=== PATIENT | male | born 1960 | race Caucasian/White ===

== ENCOUNTER 2018-01-08 06:20 | Day surgery (SDC) | payer MEDICARE ==
[~2018-01-08] VITALS: Ht 175.3 cm; Wt 87.5 kg
--- NOTE | ~2018-01-08 | OP ---
PATIENT NAME: TWIN MCCARTHY MEDICAL RECORD: [id number] :64 LOCATION:D.OPS ADMISSION DATE: SURGEON: LINDA ARENAS MD DATE OF OPERATION: 01/08/2018 REFERRED BY: Cholo Moreira MD PRIMARY CARE PHYSICIAN: Dr. Terence Daigle of [place] PREOPERATIVE DIAGNOSES: End-stage renal disease and dependence on hemodialysis with additional comorbidities, diabetes and hypertension. SURGEON: Linda Arenas MD ANESTHESIA: General plus regional block per CABIN EQUIPMENT SUPERVISOR. OPERATION PERFORMED: Creation of a left brachiobasilic Calista type AV fistula in preparation for planned return to the operating room in 3-4 weeks for creation of a brachial artery to translocated basilic vein AV fistula. PREOPERATIVE NOTE: Mr. Mccarthy is a 57-year-old white male patient with end-stage renal disease, already on dialysis. He presently has a left-sided internal jugular tunneled dialysis catheter. He is brought to the operating room for creation of an AV fistula in the left arm. He has a very dominant basilic vein circulation and I plan on a brachiobasilic. DESCRIPTION OF PROCEDURE: Under anesthesia including a regional nerve block, the patient is prepped and draped in a sterile manner. I examined him with Duplex ultrasound and confirmed the venous anatomy. Topical nitroglycerin was utilized and a Juan Carlos drain was used as a proximal venous tourniquet for this exam. I then went on to make a transverse antecubital incision and exposed the brachial artery and the basilic vein. The vein was dissected from the surrounding structures, treated with topical papaverine and distally ligated and divided and bevelled. I noted some scarring and thickening of the vein wall and scarring of valves consistent with prior phlebitis, but there was an adequate lumen. The vein was flushed with heparinized saline and clamped. The brachial artery was exposed and controlled proximally and distally with Silastic loops. It was noted to have yellow atherosclerotic plaque, but no significant calcifications. The artery was opened and flushed proximally and distally with heparinized saline. The vein was then anastomosed to the side of the artery with running 7-0 Prolene and when completed and the vessel loops released and the clamp on the vein taken off, excellent flow was immediately established within the fistula and there was no bleeding from the suture line. The wound was irrigated with saline and then closed with interrupted inverted 3-0 Vicryl and running intracuticular 4-0 Monocryl. The skin was closed with glue and the wound dressed with Maxorb Ag, Tegaderm, and Cavilon skin prep. The patient was awakened and taken to the recovery room. There was no blood loss during the procedure. All sponges, instruments, and needles were accounted for. No drain was used and no surgical specimen was submitted for histopathology. PLAN: The patient will be discharged to home and an appointment made for him to return to see me in my office in about 2 weeks. He will continue his usual home renal ADA diet and dialysis schedule and resume his home medications. Tomorrow, OPERATIVE REPORT [id number] TWIN MCCARTHY he can resume his usual daily dose of Coumadin. His regular home medications include tramadol, hydrocodone, and oxycodone, and so I have not given any new prescriptions for narcotic pain medications. TRANSINT:[id number] Voice Confirmation ID: [id number] DOCUMENT ID: [id number] LINDA ARENAS MD at 0847 CC: CHOLO MOREIRA MD [id number] DICTATION DATE: 01/08/18 1233 AGRICULTURAL SERVICE TECHNICIAN: 01/08/18 1402 [facility] 01/08/18 [facility] [address] [place] [address]
[2018-01-08 07:01] LABS: BASOPHILS 1.2 % (0-2); EOSINOPHILS 7.8 % (0-7); HEMATOCRIT 37.5 % (42.0-54.0); HEMOGLOBIN 12.6 g/dL (13.5-17.5); LYMPHOCYTES 29.8 % (15-50); MCHC 33.6 g/dL (31.0-37.0); MCV 86.4 fL (80.0-100.0); MEAN PLATELET VOLUME 10.6 fL (7.4-10.4); MONOCYTES 18.9 % (2-11); NEUTROPHILS 41.3 % (40-80); PLATELET COUNT 155 10x3/uL (130-400); RBC 4.34 10x6/uL (4.20-6.10); RDW 15.5 % (11.5-14.5); WBC 5.8 10x3/uL (4.8-10.8)
[2018-01-08 07:13] LABS: ANION GAP 15.3 mmol/L (8-16); CALCIUM 8.8 mg/dL (8.5-10.1); CARBON DIOXIDE 23.9 mmol/L (21.0-32.0); POTASSIUM - SERUM 4.2 mmol/L (3.5-5.1)
[2018-01-08 07:17] LABS: APTT 24.4 SECONDS (22.8-39.4); INR 1.57 (0.85-1.17); PROTIME 18.2 SECONDS (11.6-15.0)
[2018-01-08] MEDS ORDERED: CYCLOBENZAPRINE5 MG PO (08:04)
[2018-01-08] MEDS ORDERED: ZOFRAN4 MG PO (08:04)
[2018-01-08] MEDS ORDERED: VISTARIL25 MG (08:05)
[2018-01-08] MEDS ORDERED: COREG 3.1253.125 MG PO (08:05)
[2018-01-08] MEDS ORDERED: ENTRESTO 24 MG1 EACH PO (08:05)
[2018-01-08] MEDS ORDERED: RENVELA800 MG PO (08:06)
[2018-01-08] MEDS ORDERED: BUMEX2 MG PO (08:06)
[2018-01-08] MEDS ORDERED: SYNTHROID125 MCG PO (08:06)
[2018-01-08] MEDS ORDERED: COUMADIN3 MG PO (08:06)
[2018-01-08] MEDS ORDERED: OXYCONTIN10 MG PO (08:07)
[2018-01-08] MEDS ORDERED: NORCO 7.5/325 T1 TA1 PO (08:07)
[2018-01-08 08:16] VITALS: Ht 175.3 cm; Wt 87.5 kg
== END 2018-01-08 14:35 | disposition home or self-care (01) ==
LOC: D.OPS 06:20
PROVIDERS: Surgery
DX: E11.22 Type 2 diabetes mellitus with diabetic chronic kidney disease (principal); I12.0 Hypertensive chronic kidney disease with stage 5 chronic kidney disease or end stage renal disease; N18.6 End stage renal disease; Z99.2 Dependence on renal dialysis; Z01.812 Encounter for preprocedural laboratory examination

== ENCOUNTER 2018-01-10 15:21 | Emergency (ER) | payer MEDICARE ==
[~2018-01-10] VITALS: Ht 175.3 cm; Wt 86.4 kg
[~2018-01-10 15:21] MED LIST: BUMEX2 MG PO; COREG 3.1253.125 MG PO; COUMADIN3 MG PO; CYCLOBENZAPRINE5 MG PO; ENTRESTO 24 MG1 EACH PO; NORCO 7.5/325 T1 TA1 PO; OXYCONTIN10 MG PO; RENVELA800 MG PO; SYNTHROID125 MCG PO; VISTARIL25 MG; ZOFRAN4 MG PO
[2018-01-10 15:24] VITALS: Ht 175.3 cm; Wt 86.4 kg
[2018-01-10 16:57] LABS: BASOPHILS 0.7 % (0-2); EOSINOPHILS 9.5 % (0-7); HEMATOCRIT 39.6 % (42.0-54.0); HEMOGLOBIN 13.3 g/dL (13.5-17.5); IMMATURE GRANULOCYTES 0.2 % (0-5); LYMPHOCYTES 26.5 % (15-50); MCH 30.2 pg (26.0-34.0); MCHC 33.6 g/dL (31.0-37.0); MCV 89.8 fL (80.0-100.0); MEAN PLATELET VOLUME 10.6 fL (7.4-10.4); MONOCYTES 15.6 % (2-11); NEUTROPHILS 47.5 % (40-80); PLATELET COUNT 148 10x3/uL (130-400); RBC 4.41 10x6/uL (4.20-6.10); RDW 15.8 % (11.5-14.5); WBC 5.8 10x3/uL (4.8-10.8)
[2018-01-10 17:15] LABS: ALBUMIN 3.4 g/dL (3.4-5.0); ANION GAP 12.6 mmol/L (8-16); BILIRUBIN - TOTAL 0.91 mg/dL (0.2-1.3); CALCIUM 9.3 mg/dL (8.5-10.1); CARBON DIOXIDE 28.6 mmol/L (21.0-32.0); CREATININE - SERUM 4.2 mg/dL (0.6-1.3); POTASSIUM - SERUM 4.2 mmol/L (3.5-5.1); PROTEIN - SERUM 9.4 g/dL (6.4-8.2)
[2018-01-10] MEDS ORDERED: KEFLEX500 MG PO (17:56)
[2018-01-10 19:00] VITALS: BP 122/64
== END 2018-01-10 19:02 ==
LOC: D.ER 15:21
PROVIDERS: Family Medicine
DX: G89.18 Other acute postprocedural pain (principal); I10 Essential (primary) hypertension; I50.9 Heart failure, unspecified

== ENCOUNTER 2018-01-17 03:46 | Emergency (ER) | payer MEDICARE ==
[~2018-01-17] VITALS: Ht 175.3 cm; Wt 77.7 kg
[~2018-01-17 03:46] MED LIST changes: +KEFLEX500 MG PO
[2018-01-17 03:49] VITALS: Ht 175.3 cm; Wt 77.7 kg
[2018-01-17 05:58] VITALS: BP 98/55
== END 2018-01-17 05:59 ==
LOC: D.ER 03:46
DX: T82.898A Other specified complication of vascular prosthetic devices, implants and grafts, initial encounter (principal); I73.9 Peripheral vascular disease, unspecified; I10 Essential (primary) hypertension; I50.9 Heart failure, unspecified

== ENCOUNTER 2018-03-12 08:11 | Day surgery (SDC) | payer MEDICARE ==
[~2018-03-12] VITALS: Ht 175.3 cm; Wt 77.1 kg
[2018-03-12 08:40] LABS: HEMATOCRIT 34.6 % (42.0-54.0); HEMOGLOBIN 11.5 g/dL (13.5-17.5); MCH 29.7 pg (26.0-34.0); MCHC 33.2 g/dL (31.0-37.0); MCV 89.4 fL (80.0-100.0); MEAN PLATELET VOLUME 9.1 fL (7.4-10.4); RBC 3.87 10x6/uL (4.20-6.10); RDW 15.2 % (11.5-14.5); WBC 5.7 10x3/uL (4.8-10.8)
[2018-03-12 08:42] LABS: PLATELET COUNT 220 10x3/uL (130-400)
[2018-03-12 08:54] LABS: APTT 30.6 SECONDS (22.8-39.4); INR 1.53 (0.85-1.17); PROTIME 17.9 SECONDS (11.6-15.0)
[2018-03-12 09:18] LABS: CALCIUM 8.5 mg/dL (8.5-10.1); CARBON DIOXIDE 28.3 mmol/L (21.0-32.0); CREATININE - SERUM 4.3 mg/dL (0.6-1.3); POTASSIUM - SERUM 4.3 mmol/L (3.5-5.1)
[2018-03-12 09:40] LABS: BASOPHILS 2 % (0-2); EOSINOPHILS 11 % (0-7); LYMPHOCYTES 34 % (15-50); MONOCYTES 16 % (2-11); NEUTROPHILS 37 % (40-80); PLATELET ESTIMATE NORMAL; ROULEAUX OCC
[2018-03-12] MEDS ORDERED: REGLAN5 MG PO (10:41)
[2018-03-12] MEDS ORDERED: FAMOTIDINE10 MG PO (10:45)
[2018-03-12 11:04] VITALS: Ht 175.3 cm; Wt 77.1 kg
== END 2018-03-12 16:35 | disposition home or self-care (01) ==
LOC: D.OPS 08:11
PROVIDERS: Surgery
DX: N18.6 End stage renal disease (principal); Z01.812 Encounter for preprocedural laboratory examination; Z53.8 Procedure and treatment not carried out for other reasons

== ENCOUNTER 2018-05-07 06:28 | Day surgery (SDC) | payer MEDICARE ==
[~2018-05-07] VITALS: Ht 175.3 cm; Wt 79.4 kg
--- NOTE | ~2018-05-07 | OP ---
PATIENT NAME: Malgorzata MCCARTHY MEDICAL RECORD: [id number] :64 [facility] [place] AD[facility] DATE: SURGEON: LINDA ARENAS MD DATE OF OPERATION: 05/07/2018 REFERRING PHYSICIAN: Cholo Moreira MD PREOPERATIVE DIAGNOSIS: End-stage renal disease. OPERATION PERFORMED: Second stage creation of brachial artery to translocated basilic vein AV fistula. PREOPERATIVE NOTE: Mr. Mccarthy is a very nice 58-year-old gentleman with end-stage renal disease, who has had a Calista type brachial artery to basilic vein AV fistula created and now after several weeks he has returned to the operating room to create a translocated basilic vein fistula. DESCRIPTION OF PROCEDURE: Under general anesthesia with an LMA per LADLE REPAIRMAN, the patient was prepped and draped in a sterile manner. A long incision was made from axilla to antecubital space. This was done with ultrasound guidance directly over the dilated basilic vein. The vein was mobilized dividing up tributaries between Vicryl ties and clips and it was treated with topical papaverine. It was mobilized all the way to the axilla to very close to its junction with the deep brachial veins. The vein was ligated and divided immediately proximal to the arterial anastomosis and the vein was flushed with heparinized saline and treated again with topical papaverine. The vein was placed in an anterior superficial tunnel, brought back to the primary incision. The brachial artery was exposed at a higher level and controlled with loops. The artery was opened and flushed proximally and distally with heparinized saline. The vein was bevelled and anastomosed end-to-side to the artery with running 7-0 Prolene, and when completed and the occluding loops and clamps were released, excellent flow developed immediately within the fistula and the suture line was hemostatic. The wound was irrigated thoroughly with saline and infiltrated with 0.25% Marcaine without epinephrine. The wound was closed with interrupted inverted 3-0 Vicryl and running intracuticular Monocryl and Dermabond glue and dressed with Maxorb Ag, Tegaderm, and Cavilon skin prep. The patient awakened and taken to the recovery room. Blood loss during the operation estimated at 10 cc, of course unreplaced. All sponges, instruments and needles were accounted for. No drain was used and no surgical specimen was submitted for histopathology. PLAN: The patient's fistula will likely be ready for use in about 4 weeks. He will be scheduled to return to see me in my office in the next week and is given a prescription for Opheim 5/325, #20, to take 1 or 2 p.o. every 4 to 6 hours p.r.n. for pain. TRANSINT:[id number] Voice Confirmation ID: [id number] DOCUMENT ID: [id number] OPERATIVE REPORT [id number] Malgorzata MCCARTHY JAMES MD CC: CHOLO MOREIRA MD [id number] DICTATION DATE: 05/23/18 1018 TEMPLATE CUTTER: 05/23/18 1057 [facility] 05/07/[address] [facility] [address] [place] [address]
[~2018-05-07 06:28] MED LIST changes: +FAMOTIDINE10 MG PO; +REGLAN5 MG PO
[2018-05-07 06:59] LABS: BASOPHILS 0.1 % (0-2); EOSINOPHILS 3.6 % (0-7); HEMATOCRIT 35.1 % (42.0-54.0); HEMOGLOBIN 11.6 g/dL (13.5-17.5); IMMATURE GRANULOCYTES 0.1 % (0-5); MCH 29.5 pg (26.0-34.0); MCV 89.3 fL (80.0-100.0); MEAN PLATELET VOLUME 9.2 fL (7.4-10.4); MONOCYTES 13.8 % (2-11); NEUTROPHILS 57.4 % (40-80); PLATELET COUNT 251 10x3/uL (130-400); RBC 3.93 10x6/uL (4.20-6.10); RDW 13.1 % (11.5-14.5); WBC 6.7 10x3/uL (4.8-10.8)
[2018-05-07 07:16] LABS: ANION GAP 16.8 mmol/L (8-16); CALCIUM 8.8 mg/dL (8.5-10.1); CARBON DIOXIDE 25.4 mmol/L (21.0-32.0); CREATININE - SERUM 4.5 mg/dL (0.6-1.3); POTASSIUM - SERUM 3.2 mmol/L (3.5-5.1)
[2018-05-07 07:29] LABS: INR 1.57 (0.85-1.17); PROTIME 18.2 SECONDS (11.6-15.0)
[2018-05-07 09:43] VITALS: Ht 175.3 cm; Wt 79.4 kg
== END 2018-05-07 19:55 | disposition home or self-care (01) ==
LOC: D.OPS 06:28
PROVIDERS: Internal Medicine Nephrology
DX: E11.22 Type 2 diabetes mellitus with diabetic chronic kidney disease (principal); I12.0 Hypertensive chronic kidney disease with stage 5 chronic kidney disease or end stage renal disease; N18.6 End stage renal disease; Z99.2 Dependence on renal dialysis; Z01.812 Encounter for preprocedural laboratory examination

== ENCOUNTER 2018-06-04 09:18 | Day surgery (SDC) | payer MEDICARE ==
[~2018-06-04] VITALS: Ht 175.3 cm; Wt 77.1 kg
[2018-06-04 09:57] LABS: ANION GAP 14.2 mmol/L (8-16); CALCIUM 8.9 mg/dL (8.5-10.1); CARBON DIOXIDE 26.5 mmol/L (21.0-32.0); CREATININE - SERUM 4.2 mg/dL (0.6-1.3); POTASSIUM - SERUM 3.7 mmol/L (3.5-5.1)
[2018-06-04 09:58] LABS: EOSINOPHILS 4.3 % (0-7); HEMATOCRIT 38.1 % (42.0-54.0); HEMOGLOBIN 12.3 g/dL (13.5-17.5); IMMATURE GRANULOCYTES 0.2 % (0-5); LYMPHOCYTES 29.4 % (15-50); MCH 29.6 pg (26.0-34.0); MCHC 32.3 g/dL (31.0-37.0); MCV 91.8 fL (80.0-100.0); MEAN PLATELET VOLUME 9.7 fL (7.4-10.4); MONOCYTES 13.3 % (2-11); NEUTROPHILS 51.8 % (40-80); PLATELET COUNT 263 10x3/uL (130-400); RBC 4.15 10x6/uL (4.20-6.10); RDW 14.4 % (11.5-14.5); WBC 6.1 10x3/uL (4.8-10.8)
[2018-06-04 09:59] LABS: APTT 29.1 SECONDS (22.8-39.4); INR 1.38 (0.85-1.17); PROTIME 16.5 SECONDS (11.6-15.0)
[2018-06-04 11:11] VITALS: Ht 175.3 cm; Wt 77.1 kg
== END 2018-06-04 17:10 | disposition home or self-care (01) ==
LOC: D.OPS 09:18
PROVIDERS: Surgery
DX: T82.898A Other specified complication of vascular prosthetic devices, implants and grafts, initial encounter (principal); I73.9 Peripheral vascular disease, unspecified; E11.22 Type 2 diabetes mellitus with diabetic chronic kidney disease; I12.0 Hypertensive chronic kidney disease with stage 5 chronic kidney disease or end stage renal disease; N18.6 End stage renal disease; Z99.2 Dependence on renal dialysis; Z01.812 Encounter for preprocedural laboratory examination

== ENCOUNTER 2018-07-09 08:56 | Day surgery (SDC) | payer MEDICARE ==
[~2018-07-09] VITALS: Ht 175.3 cm; Wt 68.4 kg
--- NOTE | ~2018-07-09 | OP ---
PATIENT NAME: Malgorzata MCCARTHY MEDICAL RECORD: [id number] :64 LOCATION:[facility] ADMISSION DATE: SURGEON: LINDA ARENAS MD DATE OF OPERATION: 07/09/2018 REFERRED BY: Cholo Eagle MD PREOPERATIVE DIAGNOSES: End-stage renal disease with dependence on hemodialysis and persistent steal syndrome in the left arm despite recent MEJIA banding procedure of left brachial to translocated basilic vein arteriovenous fistula. POSTOPERATIVE DIAGNOSES: End-stage renal disease with dependence on hemodialysis and persistent steal syndrome in the left arm despite recent MEJIA banding procedure of left brachial to translocated basilic vein arteriovenous fistula. SURGEON: Linda Arenas MD ANESTHESIA: Regional nerve block plus general endotracheal anesthesia all per APPAREL RENTAL CLERK. PREOPERATIVE NOTE: Mr. Mccarthy is a 58-year-old white male with end-stage renal disease who had a translocated left basilic vein, brachial artery AV fistula created and promptly developed steal syndrome. I did a MEJIA banding procedure, which did not relieve his symptoms. That MEJIA banding procedure really consisted only of with a single Prolene tie and I was generally not happy with that procedure at that time. He is still symptomatic and so is returned to the operating room for proximalization of arterial inflow. I planned to run an Artegraft from his axillary artery distally and anastomose it to the basilic vein fistula just above the arterial anastomosis to the brachial artery and I will plan to ligate and divide the fistula just above the brachial artery anastomosis. Under regional block plus general anesthesia, first with an LMA and then general endotracheal anesthesia, the patient was prepped and draped in sterile manner and I exposed the basilic vein fistula just above the brachial artery anastomosis. The vein in this region, which has been operated on now several times, was rather friable and hard to dissect from the surrounding tissues. I made a transverse axillary incision and exposed the axillary artery and controlled it with doubly looped Silastic tapes. The artery was occluded. It was opened, flushed proximally and distally with heparinized saline and a 6 mm Artegraft taken to the package and thoroughly rinsed as per directions, was beveled and anastomosed end-to-side to the artery with running 6-0 Prolene. There was calcific atherosclerotic plaque present in the axillary artery at the upper end of that anastomosis. There was adequate inflow. However, this was not significantly diameter reducing. The Artegraft anastomosis was treated with BioGlue. It was then brought through a subcutaneous tunnel down the inside of the arm to the initial incision just above the elbow. The existing fistula there was ligated doubly with 2-0 Vicryl and then transected, flushed with heparinized saline and then an end-to-end anastomosis was done to the Artegraft with running 6-0 Prolene. When completed, excellent flow was present in the fistula and there was good augmentation as well as collapse of the fistula. Hemostasis was obtained with electrocautery. No drains were used. The wounds were irrigated with saline and closed with interrupted inverted 3-0 Vicryl and running intracuticular 4-0 Monocryl. Dermabond glue completed the skin closure. OPERATIVE REPORT [id number] Malgorzata MCCARTHY The wounds were dressed with Maxorb Ag, Tegaderm, and Cavilon skin prep. The patient was awakened and extubated and taken to the recovery room in stable condition. Blood loss was only about 50 cc. None was replaced intraoperatively. All sponges, instruments and needles were accounted for. No drain was used and no surgical specimen submitted for histopathology. I plan to see the patient back in my office next week. He is given a prescription for tramadol 50 mg, 20 of them, 1-2 p.o. q.4 hours p.r.n. pain. TRANSINT:[id number] Voice Confirmation ID: [id number] DOCUMENT ID: [id number] LINDA ARENAS MD at 1150 CC: CHOLO EAGLE MD [id number] DICTATION DATE: 07/09/181838 METAL TECHNICIAN: 07/09/182005 [facility] 07/10/18 [facility] [address] [place] [address]
[2018-07-09 10:08] LABS: BASOPHILS 0.6 % (0-2); EOSINOPHILS 3.8 % (0-7); HEMATOCRIT 39.2 % (42.0-54.0); HEMOGLOBIN 12.7 g/dL (13.5-17.5); LYMPHOCYTES 26.2 % (15-50); MCH 29.2 pg (26.0-34.0); MCHC 32.4 g/dL (31.0-37.0); MCV 90.1 fL (80.0-100.0); MONOCYTES 11.9 % (2-11); NEUTROPHILS 57.5 % (40-80); RBC 4.35 10x6/uL (4.20-6.10); RDW 13.9 % (11.5-14.5); WBC 5.3 10x3/uL (4.8-10.8)
[2018-07-09 10:15] LABS: PLATELET COUNT 200 10x3/uL (130-400)
[2018-07-09 10:30] LABS: APTT 30.5 SECONDS (22.8-39.4); CALCIUM 8.4 mg/dL (8.5-10.1); CARBON DIOXIDE 24.6 mmol/L (21.0-32.0); CREATININE - SERUM 7.4 mg/dL (0.6-1.3); INR 1.4 (0.85-1.17); POTASSIUM - SERUM 4.6 mmol/L (3.5-5.1); PROTIME 16.6 SECONDS (11.6-15.0)
[2018-07-09 11:19] VITALS: BP 146/90; BMI 21.9
[2018-07-09 19:37] VITALS: BP 149/84
[2018-07-09 20:00] VITALS: BP 149/84
[2018-07-09 22:28] VITALS: BP 149/84; Ht 175.3 cm; Wt 68.4 kg
== END 2018-07-10 03:34 ==
LOC: D.OPS 08:56 → D.M2 18:54 → D.OPS 07-10 03:34
PROVIDERS: Surgery
DX: T82.898A Other specified complication of vascular prosthetic devices, implants and grafts, initial encounter (principal); I70.298 Other atherosclerosis of native arteries of extremities, other extremity; R06.81 Apnea, not elsewhere classified; E11.22 Type 2 diabetes mellitus with diabetic chronic kidney disease; I12.0 Hypertensive chronic kidney disease with stage 5 chronic kidney disease or end stage renal disease; N18.6 End stage renal disease; Z99.2 Dependence on renal dialysis; Z01.812 Encounter for preprocedural laboratory examination